=== PATIENT | female | born 1950 | race Caucasian/White ===

== ENCOUNTER → 2018-04-08 | Outpatient (CLI) | payer OTHER ==
[~2018-04-08] MED LIST: ACET120S PO; ASPI325EC PO; ASPI81CH PO; CITA20 PO; ERGO400 PO; Hair, Skin & N1 EACH PO; LEVSOD88 PO; Percocet 5-3251 EACH PO; TIZANIDINE HCL2 MG PO; Vitamin D400 UNI1 PO; ZESTORETIC 20-121 EA PO; Zanaflex2 M1 PO
== END | disposition home or self-care (01) ==
LOC: PLD 14:08 → LAB SHORT 14:08
DX: D48.5 Neoplasm of uncertain behavior of skin (principal)
CPT/HCPCS: 88305

== ENCOUNTER 2020-06-08 08:26 | Day surgery (SDC) | payer OTHER ==
[~2020-06-08] VITALS: Ht 157.5 cm; Wt 73.8 kg
[~2020-06-08 08:26] MED LIST changes: +Aspirin EC81 MG PO; +CELE100 PO; +Citalopram HBr20 MG PO; +IBUP600 PO; +LEVSOD75 PO; +Lisinopril-Hct1 EAC4 PO; +MULTIVITAMINS1 EAC3 PO
== END 2020-06-08 10:30 | disposition home or self-care (01) ==
LOC: ORSCSDS 08:26
PROVIDERS: Internal Medicine Gastroenterology
PROC: 0DJD8ZZ Inspection of Lower Intestinal Tract, Via Natural or Artificial Opening Endoscopic (ICD-10-PCS; principal; 2020-06-08 09:45)
DX: Z12.11 Encounter for screening for malignant neoplasm of colon (principal); K57.30 Diverticulosis of large intestine without perforation or abscess without bleeding; I10 Essential (primary) hypertension; E03.9 Hypothyroidism, unspecified; E78.5 Hyperlipidemia, unspecified; K21.9 Gastro-esophageal reflux disease without esophagitis; Z79.899 Other long term (current) drug therapy; Z79.82 Long term (current) use of aspirin
CPT/HCPCS: J2704; J7120